=== PATIENT | male | born 1985 | race Caucasian/White ===

== ENCOUNTER 2019-08-26 22:45 | Emergency (ER) | payer SELFPAY ==
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
[2019-08-27 00:34] LABS: ACETAMINOPHEN 0 ug/mL (10-30)
[2019-08-27] MEDS ORDERED: Potassium Chloride 20 MEQ Tab.ER PO ONE (01:29)
== END 2019-08-27 06:15 ==
LOC: JD.ED 22:45
DX: R45.851 Suicidal ideations (principal); F10.129 Alcohol abuse with intoxication, unspecified; Y90.0 Blood alcohol level of less than 20 mg/100 ml; E87.6 Hypokalemia; F50.81 Binge eating disorder; F17.210 Nicotine dependence, cigarettes, uncomplicated
CPT/HCPCS: 36415; 80053; 80306; 80307; 84443; 85007; 85027; 93005; 99285; A9270; 93010

== ENCOUNTER 2019-09-04 19:17 | Emergency (ER) | payer MEDICAID ==
--- NOTE | 2019-09-04 19:42 | EDM.PDOC ---
ED HPI GENERAL MEDICAL PROBLEM - General Chief Complaint: Skin Complaint Stated Complaint: REACTION TO MEDICATION Time Seen by Provider: 09/04/19 19:41 - History of Present Illness INITIAL COMMENTS - FREE TEXT/NARRATIVE: Patient was just discharged from [facility] floor he was discharged on a Prozac 10 mg and Zyprexa. Yesterday the patient developed some burning sensation in his legs feels like some is trying to pull the nerves out of his legs. He is taking his medications as directed. And not using any recreational drugs at this time.. Patient denies any fevers or chills he is not having breathing problems shortness of breath and otherwise feels okay. Bilateral Leg Pain Score (Numeric/FACES): 6 - Related Data Allergies Allergy/AdvReac Type Severity Reaction Status Date / Time No Known Allergies Allergy Verified 09/04/19 19:24 Home Meds: Home Meds FLUoxetine HCl [Prozac] 20 mg PO DAILY 09/04/19 [History] OLANZapine [ZyPREXA] 10 mg PO DAILY 09/04/19 [History] Past Medical History - Past Health History Medical/Surgical History: Denies Medical/Surgical History Psychiatric History: Reports: Bipolar, Suicide Attempt Social & Family History - Caffeine Use Caffeine Use: Reports: None - Living Situation & Occupation Living situation: Reports: Single, with Family (Mother) Occupation: Unemployed ED ROS GENERAL - Review of Systems Review Of Systems: See Below Constitutional: Reports: No Symptoms HEENT: Reports: No Symptoms Respiratory: Reports: No Symptoms Cardiovascular: Reports: No Symptoms GI/Abdominal: Reports: No Symptoms Neurological: Reports: No Symptoms Psychiatric: Reports: No Symptoms. Denies: Agitation, Anxiety, Confusion, Cravings, Depression, Hallucinations, Suicidal Ideation Hematologic/Lymphatic: Reports: No Symptoms Immunologic: Reports: No Symptoms ED EXAM, SKIN/RASH Exam: See Below Exam Limited By: No Limitations General Appearance: Alert, WD/WN Ears: Normal External Exam, Normal Canal, Hearing Grossly Normal, Normal TMs Nose: Normal Inspection, Normal Mucosa, No Blood Throat/Mouth: Normal Inspection, Normal Lips, Normal Teeth, Normal Gums, Normal Oropharynx, Normal Voice, No Airway Compromise Head: Atraumatic, Normocephalic Neck: Normal Inspection, Supple, Non-Tender, Full Range of Motion Respiratory/Chest: No Respiratory Distress, Lungs Clear, Normal Breath Sounds, No Accessory Muscle Use, Chest Non-Tender Cardiovascular: Normal Peripheral Pulses, Regular Rate, Rhythm, No Edema, No Gallop, No JVD, No Murmur, No Rub GI/Abdominal: Normal Bowel Sounds, Soft, Non-Tender Back Exam: Normal Inspection. No: CVA Tenderness (L), CVA Tenderness (R) Extremities: Normal Inspection, Normal Range of Motion, Non-Tender Neurological: Alert, Oriented, Normal Cognition Psychiatric: Normal Affect, Normal Mood, Anxious (Anxious with this condition) Skin: Warm, Dry, Intact Course - Vital Signs Last Recorded V/S: Last Vital Signs Temp 36.9 C 09/04/19 19:26 Pulse 59 L 09/04/19 19:26 Resp 19 09/04/19 19: BP 153/90 H 09/04/19 19: Pulse Ox 92 L 09/04/19 19:26 - Orders/Labs/Meds Labs: Laboratory Tests 09/04/19 09/04/19 09/04/19 Range/Units 21:23 21:23 21:27 WBC (4.23-9.07) K/mm3 RBC (4.63-6.08) M/mm3 Hgb (13.7-17.5) gm/dl Hct (40.1-51.0) % MCV (79.0-92.2) fl MCH (25.7-32.2) pg MCHC (32.2-35.5) g/dl RDW Std Deviation (35.1-43.9) fL Plt Count (163-337) K/mm3 MPV (9.4-12.3) fl Neut % (Auto) (34.0-67.9) % Lymph % (Auto) (21.8-53.1) % [place] % (Auto) (5.3-12.2) % Eos % (Auto) (0.8-7.0) Baso % (Auto) (0.1-1.2) % Neut # (Auto) (1.78-5.38) K/mm3 Lymph # (Auto) (1.32-3.57) K/mm3 [place] # (Auto) (0.30-0.82) K/mm3 Eos # (Auto) (0.04-0.54) K/mm3 Baso # (Auto) (0.01-0.08) K/mm3 Sodium 143 (136-145) mEq/L Potassium 4.2 (3.5-5.1) mEq/L Chloride 103 (98-107) mEq/L Carbon Dioxide 28 (21-32) mEq/L Anion Gap 16.2 H (5-15) BUN 12 (7-18) mg/dL Creatinine 1.0 (0.7-1.3) mg/dL Est Cr Clr Drug Dosing 123.30 mL/min Estimated GFR (MDRD) > 60 (>60) mL/min BUN/Creatinine Ratio 12.0 L (14-18) Glucose 98 (74-106) mg/dL Calcium 9.7 (8.5-10.1) mg/dL Total Bilirubin 0.3 (0.2-1.0) mg/dL AST 58 H (15-37) U/L ALT 159 H (16-63) U/L Alkaline Phosphatase 77 (46-116) U/L Total Protein 7.3 (6.4-8.2) g/dl Albumin 3.7 (3.4-5.0) g/dl Globulin 3.6 gm/dL Albumin/Globulin Ratio 1.0 (1-2) Urine Color Yellow (Yellow) Urine Appearance Clear (Clear) Urine pH 7.0 (5.0-8.0) Ur Specific [place] > or = 1.030 (1.005-1.030) Urine Protein Negative (Negative) Urine Glucose (UA) Negative (Negative) Urine Ketones 1+ H (Negative) Urine Occult Blood Negative (Negative) Urine Nitrite Negative (Negative) Urine Bilirubin Negative (Negative) Urine Urobilinogen 0.2 (0.2-1.0) Ur Leukocyte Esterase Negative (Negative) Urine RBC 0-5 (0-5) /hpf Urine WBC 0-5 (0-5) /hpf Ur Squamous Epith Cells 0-5 (0-5) /hpf Amorphous Sediment Moderate H (NOT SEEN) /hpf Urine Bacteria Few (FEW) /hpf Urine Mucus Few (FEW) /hpf Urine Opiates Screen Negative (VUWQJS=623) Ur Buprenorphine Scrn Negative (CUTOFF=10) Ur Oxycodone Screen Negative (FOW1CW=025) Urine Methadone Screen Negative (DCY4ZU=919) Ur Propoxyphene Screen Negative (QHVBEF=545) Ur Barbiturates Screen Negative (GQVSLO=087) Ur Tricyclics Screen Negative (QDNFGV=694) Ur Phencyclidine Scrn Negative (CUTOFF=25) Ur Amphetamine Screen Negative (VUUCKA=132) U Methamphetamines Scrn Negative (KBKVLT=209) U Benzodiazepines Scrn Negative (PSFLRM=965) U Cocaine Metab Screen Negative (DSOORM=387) U Marijuana (THC) Screen Negative (CUTOFF=50) Ethyl Alcohol 0.00 (0.00) gm% 09/04/19 Range/Units 21:27 WBC 7.71 (4.23-9.07) K/mm3 RBC 4.75 (4.63-6.08) M/mm3 Hgb 14.8 (13.7-17.5) gm/dl Hct 44.3 (40.1-51.0) % MCV 93.3 H (79.0-92.2) fl MCH 31.2 (25.7-32.2) pg MCHC 33.4 (32.2-35.5) g/dl RDW Std Deviation 46.5 H (35.1-43.9) fL Plt Count 235 (163-337) K/mm3 MPV 9.5 (9.4-12.3) fl Neut % (Auto) 55.0 (34.0-67.9) % Lymph % (Auto) 26.7 (21.8-53.1) % [place] % (Auto) 14.5 H (5.3-12.2) % Eos % (Auto) 2.2 (0.8-7.0) Baso % (Auto) 0.4 (0.1-1.2) % Neut # (Auto) 4.24 (1.78-5.38) K/mm3 Lymph # (Auto) 2.06 (1.32-3.57) K/mm3 [place] # (Auto) 1.12 H (0.30-0.82) K/mm3 Eos # (Auto) 0.17 (0.04-0.54) K/mm3 Baso # (Auto) 0.03 (0.01-0.08) K/mm3 Sodium (136-145) mEq/L Potassium (3.5-5.1) mEq/L Chloride (98-107) mEq/L Carbon Dioxide (21-32) mEq/L Anion Gap (5-15) BUN (7-18) mg/dL Creatinine (0.7-1.3) mg/dL Est Cr Clr Drug Dosing mL/min Estimated GFR (MDRD) (>60) mL/min BUN/Creatinine Ratio (14-18) Glucose (74-106) mg/dL Calcium (8.5-10.1) mg/dL Total Bilirubin (0.2-1.0) mg/dL AST (15-37) U/L ALT (16-63) U/L Alkaline Phosphatase (46-116) U/L Total Protein (6.4-8.2) g/dl Albumin (3.4-5.0) g/dl Globulin gm/dL Albumin/Globulin Ratio (1-2) Urine Color (Yellow) Urine Appearance (Clear) Urine pH (5.0-8.0) Ur Specific [place] (1.005-1.030) Urine Protein (Negative) Urine Glucose (UA) (Negative) Urine Ketones (Negative) Urine Occult Blood (Negative) Urine Nitrite (Negative) Urine Bilirubin (Negative) Urine Urobilinogen (0.2-1.0) Ur Leukocyte Esterase (Negative) Urine RBC (0-5) /hpf Urine WBC (0-5) /hpf Ur Squamous Epith Cells (0-5) /hpf Amorphous Sediment (NOT SEEN) /hpf Urine Bacteria (FEW) /hpf Urine Mucus (FEW) /hpf Urine Opiates Screen (ZQZAXH=058) Ur Buprenorphine Scrn (CUTOFF=10) Ur Oxycodone Screen (XFG9VW=204) Urine Methadone Screen (TZI3WF=515) Ur Propoxyphene Screen (XFEVZQ=937) Ur Barbiturates Screen (NECVWK=003) Ur Tricyclics Screen (XTQXTZ=235) Ur Phencyclidine Scrn (CUTOFF=25) Ur Amphetamine Screen (KURMTP=697) U Methamphetamines Scrn (KYMCXQ=524) U Benzodiazepines Scrn (XCSWLT=524) U Cocaine Metab Screen (OXNBCE=906) U Marijuana (THC) Screen (CUTOFF=50) Ethyl Alcohol (0.00) gm% - Re-Assessments/Exams Free Text/Narrative Re-Assessment/Exam: 09/04/19 20:[address] Herndon at [facility] is in [place] her recommendation was to increase the Zyprexa to 20 if he clears a basic medical exam. 09/04/19 22:27 Normal exam labs are not at all concerning alcohol is negative drug screen is negative. Will increase Zyprexa to 20 mg a day and have him follow-up with psychiatrist in the morning. Departure - Departure Time of Disposition: 22:28 Disposition: Home, Self-Care 01 Clinical Impression: Encounter for medication adjustment - Discharge Information Referrals: PCP,None [Ordering Only Provider] - Forms: ED Department Discharge Additional Instructions: Return to the emergency room with any questions problems or worsening symptoms. Increase the Zyprexa to 20 mg at night. Call your psychiatrist in the morning to discuss the medication changes. Inform him that I discussed this with Dr. Herndon this evening. Sepsis Event Note - Evaluation Sepsis Screening Result: No Definite Risk - Focused Exam Vital Signs: Vital Signs Temp Pulse Resp BP Pulse Ox 09/04/19 19:26 36.9 C 59 L 19 153/90 H 92 L Date Exam was Performed: 09/04/19 Time Exam was Performed: 22:27
== END 2019-09-04 22:34 | disposition home or self-care (01) ==
LOC: JD.ED 19:17
DX: Z02.89 Encounter for other administrative examinations (principal); F31.9 Bipolar disorder, unspecified; Z79.899 Other long term (current) drug therapy
CPT/HCPCS: 36415; 80053; 80306; 80307; 81001; 85025; 99282

== ENCOUNTER 2019-09-15 11:07 | Emergency (ER) | payer MEDICAID ==
--- NOTE | 2019-09-15 11:55 | EDM.PDOC ---
ED HPI GENERAL MEDICAL PROBLEM - General Chief Complaint: ENT Problem Stated Complaint: SORE THROAT Time Seen by Provider: 09/15/19 11:14 Source of Information: Reports: Patient History Limitations: Reports: No Limitations - History of Present Illness INITIAL COMMENTS - FREE TEXT/NARRATIVE: Patient is a 34-year-old male who presents with complaints of a sore throat that started upon waking this morning. He states that he felt well before going to bed last night, however when he woke up this morning he had the sore throat. He has had no other symptoms, other than a slight cough which he attributes to scratching his throat. Denies fever, chills, nausea, or vomiting. He has no nasal congestion. Patient does verbalize concern that he may have sleep apnea because he feels like he wakes up during the night not breathing. He also states that he is a very heavy snorer. Throat Pain Score (Numeric/FACES): 10 - Related Data Allergies Allergy/AdvReac Type Severity Reaction Status Date / Time No Known Allergies Allergy Verified 09/15/19 11:13 Home Meds: Home Meds FLUoxetine HCl [Prozac] 20 mg PO DAILY 09/04/19 [History] OLANZapine [ZyPREXA] 20 mg PO DAILY 09/04/19 [History] Past Medical History - Past Health History Medical/Surgical History: Denies Medical/Surgical History Psychiatric History: Reports: Bipolar, Suicide Attempt Social & Family History - Tobacco Use Smoking Status *Q: Current Every Day Smoker Years of Tobacco use: 15 Packs/Tins Daily: 0.3 - Caffeine Use Caffeine Use: Reports: Coffee, Soda - Recreational Drug Use Recreational Drug Use: No - Living Situation & Occupation Living situation: Reports: Single, with Family (Mother) Occupation: Unemployed ED ROS ENT - Review of Systems Review Of Systems: Comprehensive ROS is negative, except as noted in HPI. ED EXAM, ENT - Physical Exam Exam: See Below Exam Limited By: No Limitations General Appearance: Alert, WD/WN, No Apparent Distress Mouth/Throat: Pharyngeal Erythema, Tonsillar Erythema, Tonsillar Swelling. No: Tonsillar Exudates Neck: Normal Inspection, Supple, Non-Tender, Full Range of Motion Respiratory/Chest: No Respiratory Distress, Lungs Clear, Normal Breath Sounds, No Accessory Muscle Use, Chest Non-Tender Cardiovascular: Normal Peripheral Pulses, Regular Rate, Rhythm, No Edema, No Gallop, No JVD, No Murmur, No Rub Neurological: Alert, Oriented, CN II-XII Intact, Normal Cognition, Normal Gait, Normal Reflexes, No Motor/Sensory Deficits Psychiatric: Normal Affect, Normal Mood Skin: Warm, Dry, Intact, Normal Color, No Rash Course - Vital Signs Last Recorded V/S: Last Vital Signs Temp 97.5 F 09/15/19 11:14 Pulse 120 H 09/15/19 11:14 Resp 18 09/15/19 11:14 BP 159/90 H 09/15/19 11:14 Pulse Ox 95 09/15/19 11:14 - Orders/Labs/Meds Orders: Active Orders 24 hr Category Date Time Status CULTURE STREP A CONFIRMATION [] Stat Lab 09/15/19 11:25 Results STREP SCRN A RAPID W CULT CONF [] Stat Lab 09/15/19 11:25 Results - Re-Assessments/Exams Free Text/Narrative Re-Assessment/Exam: On exam, patient does have some mild erythema in his oropharynx, however there is no tonsillar exudates. We will check him for strep. 09/15/19 11:52 Strep screen was negative. Discussed with patient that his sore throat may be related to his heavy snoring or it could be related to a virus. Discussed interventions he can take to remedy the pain. Discussed return precautions. Discharge instructions as documented. Departure - Departure Time of Disposition: 11:53 Disposition: Home, Self-Care 01 Condition: Good Clinical Impression: Sore throat - Discharge Information *PRESCRIPTION DRUG MONITORING PROGRAM REVIEWED*: No *COPY OF PRESCRIPTION DRUG MONITORING REPORT IN PATIENT SOFI: No Instructions: Sore Throat Referrals: PCP,None [Primary Care Provider] - Additional Instructions: You were seen in the emergency department today for a sore throat that started this morning. A strep screen was completed and found to be negative. As we discussed, it is possible that your sore throat may be related to your heavy snoring, or it could be viral in nature. Recommend that you use Tylenol or ibuprofen as needed for pain. You may also use Chloraseptic spray. Cold beverages or popsicles will help soothe the sore throat. If you should experience worsening symptoms such as fever, chills, difficulty breathing or any other symptoms of concern, please do not hesitate to return to the emergency department or follow-up in the clinic. With regards to your concern of possible sleep apnea, I do recommend that you call to schedule an appointment in the clinic with one of the providers to discuss a sleep study. You have been provided with a list of providers. The number to schedule with them is [phone]. Sepsis Event Note - Evaluation Sepsis Screening Result: No Definite Risk - Focused Exam Vital Signs: Vital Signs Temp Pulse Resp BP Pulse Ox 09/15/19 11:14 97.5 F 120 H 18 159/90 H 95 Date Exam was Performed: 09/15/19 Time Exam was Performed: 11:50 - My Orders Last 24 Hours: My Active Orders 09/15/19 11:25 CULTURE STREP A CONFIRMATION [RM] Stat STREP SCRN A RAPID W CULT CONF [RM] Stat - Assessment/Plan Last 24 Hours: My Active Orders 09/15/19 11:25 CULTURE STREP A CONFIRMATION [RM] Stat STREP SCRN A RAPID W CULT CONF [RM] Stat
== END 2019-09-15 12:10 | disposition home or self-care (01) ==
LOC: JD.ED 11:07
DX: J02.9 Acute pharyngitis, unspecified (principal); F17.210 Nicotine dependence, cigarettes, uncomplicated; Z79.899 Other long term (current) drug therapy
CPT/HCPCS: 87081; 87430; 99282; 99283

== ENCOUNTER 2019-09-18 10:58 | Emergency (ER) | payer MEDICAID | END 2019-09-18 11:50 | disposition left against medical advice (07) | LOC: JD.ED 10:58 | DX: Z53.21 Procedure and treatment not carried out due to patient leaving prior to being seen by health care provider (principal) ==

== ENCOUNTER 2019-11-02 19:32 | Emergency (ER) | payer MEDICAID ==
--- NOTE | 2019-11-02 19:49 | EDM.PDOC ---
ED HPI GENERAL MEDICAL PROBLEM - General Chief Complaint: Drug or Alcohol Abuse Stated Complaint: [facility] Time Seen by Provider: 11/02/19 19:36 Source of Information: Reports: Patient, EMS History Limitations: Reports: Intoxication - History of Present Illness INITIAL COMMENTS - FREE TEXT/NARRATIVE: This is a 34-year-old male. He was found in the front yard of a home that was not his. He states he was laying in the yard on his back looking up at the [place] feeling the grass. Apparently the house insurance agency owner called the ambulance thinking he was unconscious and when they arrived he was fully awake and talking. He states he drank too much alcohol today and he was just enjoying the grass. He does have a history of binge pattern drinking and he is inebriated presently. He denies any other symptoms. He denies any upper airway congestion no cough. He denies any musculoskeletal pain. He denies any abdominal pain. He states he wants to be taken home. - Related Data Allergies Allergy/AdvReac Type Severity Reaction Status Date / Time No Known Allergies Allergy Verified 09/15/19 11:13 Home Meds: Home Meds FLUoxetine HCl [Prozac] 20 mg PO DAILY 09/04/19 [History] OLANZapine [ZyPREXA] 20 mg PO DAILY 09/04/19 [History] Past Medical History - Past Health History Medical/Surgical History: Denies Medical/Surgical History HEENT History: Reports: Impaired Vision Psychiatric History: Reports: Bipolar, Depression, Suicide Attempt Social & Family History - Family History Family Medical History: Noncontributory - Tobacco Use Smoking Status *Q: Current Every Day Smoker Years of Tobacco use: 18 Packs/Tins Daily: 1 - Caffeine Use Caffeine Use: Reports: Coffee - Living Situation & Occupation Living situation: Reports: Single, with Family (Mother) Occupation: Unemployed ED ROS GENERAL - Review of Systems Review Of Systems: See Below Reason Not Obtained: The patient states there is nothing wrong with him - Physical Exam Exam: See Below Exam Limited By: Intoxication General Appearance: Alert, WD/WN, No Apparent Distress Eye Exam: Bilateral Eye: Normal Inspection Ears: Normal External Exam Nose: Normal Inspection Throat/Mouth: Normal Inspection, Normal Lips, Normal Voice, No Airway Compromise Head Exam: Normocephalic Neck: Supple, Non-Tender Respiratory/Chest: No Respiratory Distress, Lungs Clear, Normal Breath Sounds Cardiovascular: Regular Rate, Rhythm, No Murmur, Tachycardia GI/Abdominal: Soft, Non-Tender, Other (Bowel sounds are present but they are decreased) Neuro Exam (Abbreviated): Alert, No Motor/Sensory Deficits, Other (Patient is friendly and very talkative, he is not certain what time of day it is or the year, he does understand he rode an ambulance here and he is at the hospital) Back Exam: Full Range of Motion Extremities: Normal Inspection, Normal Range of Motion Psychiatric: Other (The patient appears to be very joyous) Skin Exam: Warm, Dry Course - Vital Signs Last Recorded V/S: Last Vital Signs Temp 97.5 F 11/02/19 19:35 Pulse 124 H 11/02/19 19:35 Resp 16 11/02/19 19:35 BP 114/43 L 11/02/19 19:35 Pulse Ox 95 11/02/19 19:35 - Re-Assessments/Exams Free Text/Narrative Re-Assessment/Exam: 11/02/19 20:04 The patient has been walking around the ER. We have been attempting to keep him in his room. His mother finally showed up and she is giving him what for and is going to take him home. The patient has been walking with no difficulty standing sitting squatting with no difficulty he does not have any imbalance noted. Other than being inebriated he does not appear to have any other acute problems. 11/03/19 02:35 Mother came and scolded the patient and then took him home by the arm. Departure - Departure Time of Disposition: 20:01 Disposition: Home, Self-Care 01 Condition: Fair Clinical Impression: Alcohol ingestion Alcohol intoxication Qualifiers: Complication of substance-induced condition: uncomplicated Qualified Code(s): F10.920 - Alcohol use, unspecified with intoxication, uncomplicated - Discharge Information *PRESCRIPTION DRUG MONITORING PROGRAM REVIEWED*: Not Applicable *COPY OF PRESCRIPTION DRUG MONITORING REPORT IN PATIENT SOFI: Not Applicable Instructions: Alcohol Intoxication, [id number] Referrals: PCP,None [Primary Care Provider] - Forms: ED Department Discharge Additional Instructions: The Mother has come to the ER to take her son home, she agrees to be in charge of him until he is sober, I will discharge him in her care at this time. Sepsis Event Note (ED) - Evaluation Sepsis Screening Result: No Definite Risk - Focused Exam Vital Signs: Vital Signs Temp Pulse Resp BP Pulse Ox 06/26/20 19:35 97.5 F 124 H 16 114/43 L 95
== END 2019-11-02 20:10 | disposition home or self-care (01) ==
LOC: JD.ED 19:32
DX: F10.120 Alcohol abuse with intoxication, uncomplicated (principal); F31.9 Bipolar disorder, unspecified; F17.210 Nicotine dependence, cigarettes, uncomplicated; R00.0 Tachycardia, unspecified; Z79.899 Other long term (current) drug therapy
CPT/HCPCS: 99282; 99283

== ENCOUNTER 2019-11-23 23:30 | Emergency (ER) | payer MEDICAID ==
--- NOTE | 2019-11-24 02:07 | EDM.PDOCBH ---
ED HPI GENERAL MEDICAL PROBLEM - General Chief Complaint: Behavioral/Psych Stated Complaint: HARMFUL THOUGHTS Time Seen by Provider: 11/24/19 01:43 Source of Information: Reports: Patient History Limitations: Reports: No Limitations - History of Present Illness INITIAL COMMENTS - FREE TEXT/NARRATIVE: Mr. Sloan is a very pleasant 35-year-old gentleman with a past medical history significant for binge alcoholism and bipolar affective disorder, untreated for the past 3 to 4 weeks due to the patient taking his medications in excess of that prescribed and running out early, who now presents the ED stating that he has been hearing voices for the past 2 years, telling him lots of things, but for the past 3 weeks, he had been seeing "shadow people", and now he is able to actually see normal-looking people that he cannot distinguish from real people. He also states that he has been feeling suicidal for years, and considered stepping out in front of a car. He states that he attempted to commit suicide about 6 months ago by putting a loaded shotgun under his chin, but he does not know exactly what happened other than he apparently lost his nerve at the last second. He states that he was doing well until today, when he redeveloped strong feelings of being suicidal. He has considered suicide by stepping in front of a car, although he also mentioned to the triage nurse that he would want the car to hit his mother for hitting him. He has not injured himself, although he states that he did drink a fifth of whiskey last night, with his most recent drink just prior to coming to the ED. He denies taking any creation of drugs or medications, other than an antibiotic that he was prescribed by a dentist recently. Here in the ED, the patient is initially found to be tachycardic at 110 bpm, otherwise, he is hemodynamically stable, afebrile, saturating 98% on room air. Other than his psychiatric issues, the patient denies recent fever, chills, sore throat, ear pain, nasal or sinus congestion, cough, dyspnea, chest pain, palpitations, nausea, vomiting, constipation, diarrhea, abdominal pain, urinary symptoms, recent weight gain or weight loss, recent bloody bowel movements or black bowel movements, recent joint aches, headaches, or rashes. The patient does not have a PCP. His Psychiatrist is at [facility]. - Related Data Allergies Allergy/AdvReac Type Severity Reaction Status Date / Time No Known Allergies Allergy Verified 09/15/19 11:13 Home Meds: Home Meds FLUoxetine HCl [Prozac] 20 mg PO DAILY 09/04/19 [History] OLANZapine [ZyPREXA] 20 mg PO DAILY 09/04/19 [History] Past Medical History HEENT History: Reports: Impaired Vision Psychiatric History: Reports: Addiction (alcohol), Bipolar (untreated), Suicide Attempt, Other (See Below) (Insomnia) Social & Family History - Family History Family Medical History: Noncontributory - Tobacco Use Smoking Status *Q: Current Every Day Smoker Years of Tobacco use: 18 Packs/Tins Daily: 0.3 Packs/Tins Daily Comment: Down from 2 ppd - Caffeine Use Caffeine Use: Reports: Coffee - Alcohol Use Alcohol Use History: Yes Alcohol Use Frequency: Binges - Recreational Drug Use Recreational Drug Use: Yes Drug Use in Last 12 Months: Yes Recreational Drug Type: Reports: Amphetamines (Speed) (last took Adderall around 2011), Benzodiazepines (last abused Xanax, Valium 11/22/2019), Cocaine (last snoted around 2015), Ecstasy (last took 2018), Heroin (snorted once in 2015), Marijuana/Hashish (last smoked Jul 2019), Methamphetamine (last snorted, smoked Apr 2019), Other (see below) (Last toof GHB Jun 2019) - Living Situation & Occupation Living situation: Reports: Single, with Family (Mother) Occupation: Unemployed ED ROS GENERAL - Review of Systems Review Of Systems: Comprehensive ROS is negative, except as noted in HPI. ED EXAM, BEHAVIORAL HEALTH - Physical Exam Exam: See Below Exam Limited By: No Limitations General Appearance: Alert, WD/WN, No Apparent Distress Eye Exam: Bilateral Eye: EOMI, Normal Inspection Ears: Normal External Exam, Hearing Grossly Normal Nose: Normal Inspection Throat/Mouth: Normal Inspection, Normal Lips, Normal Voice, No Airway Compromise Head: Atraumatic, Normocephalic Neck: Normal Inspection, Full Range of Motion Respiratory/Chest: No Respiratory Distress, Lungs Clear, Normal Breath Sounds, No Accessory Muscle Use Cardiovascular: Normal Peripheral Pulses, Regular Rate, Rhythm, No Edema, No Gallop, No JVD, No Murmur, No Rub GI/Abdominal: Normal Bowel Sounds, Soft, Non-Tender, No Organomegaly, No Distention, No Abnormal Bruit, No Mass (Male) Exam: Deferred Rectal (Males) Exam: Deferred Back Exam: Normal Inspection, Full Range of Motion, NT Extremities: Normal Inspection, Normal Range of Motion, No Pedal Edema, Normal Capillary Refill Neurological: Alert, No Motor/Sensory Deficits, Oriented x 3 Psychiatric: Normal Affect Skin Exam: Warm, Dry, Intact, Normal color, No rash EKG INTERPRETATION EKG Date: 11/24/19 Time: 02:11 Rhythm: NSR Rate (Beats/Min): 97 Gipsy: Normal P-Wave: Present QRS: Other (Late transition) ST-T: Normal QT: Normal Comparison: No Change (08/26/2019) COURSE, BEHAVIORAL HEALTH COMP - Course Vital Signs: Last Vital Signs Temp 36.9 C 11/24/19 00:02 Pulse 110 H 11/24/19 00:02 Resp 16 11/24/19 00:02 BP 128/81 11/24/19 00:02 Pulse Ox 98 11/24/19 00:02 Orders, Labs, Meds: Laboratory Tests 11/24/19 11/24/19 11/24/19 Range/Units 02:40 02:40 02:40 WBC 6.24 (4.23-9.07) K/mm3 RBC 4.56 L (4.63-6.08) M/mm3 Hgb 14.3 (13.7-17.5) gm/dl Hct 42.4 (40.1-51.0) % MCV 93.0 H (79.0-92.2) fl MCH 31.4 (25.7-32.2) pg MCHC 33.7 (32.2-35.5) g/dl RDW Std Deviation 42.6 (35.1-43.9) fL Plt Count 326 D (163-337) K/mm3 MPV 9.0 L (9.4-12.3) fl Neutrophils % (Manual) 38 L (40-60) % Band Neutrophils % 0 (0-10) % Lymphocytes % (Manual) 50 H (20-40) % Atypical Lymphs % 0 % Monocytes % (Manual) 8 (2-10) % Eosinophils % (Manual) 3 (0.8-7.0) % Basophils % (Manual) 1 (0.2-1.2) Platelet Estimate Adequate Plt Morphology Comment Normal RBC Morph Comment Normal Sodium 145 (136-145) mEq/L Potassium 3.7 (3.5-5.1) mEq/L Chloride 108 H (98-107) mEq/L Carbon Dioxide 31 (21-32) mEq/L Anion Gap 9.7 (5-15) BUN 9 (7-18) mg/dL Creatinine 1.4 H (0.7-1.3) mg/dL Est Cr Clr Drug Dosing TNP Estimated GFR (MDRD) 59 (>60) mL/min BUN/Creatinine Ratio 6.4 L (14-18) Glucose 116 H (74-106) mg/dL Calcium 8.1 L D (8.5-10.1) mg/dL Total Bilirubin 0.2 (0.2-1.0) mg/dL AST 74 H (15-37) U/L ALT 115 H (16-63) U/L Alkaline Phosphatase 89 (46-116) U/L Total Protein 6.7 (6.4-8.2) g/dl Albumin 3.4 (3.4-5.0) g/dl Globulin 3.3 gm/dL Albumin/Globulin Ratio 1.0 (1-2) TSH 3rd Generation 0.731 (0.358-3.74) uIU/mL Salicylates 3.3 (2.8-20) mg/dL Urine Opiates Screen (JXJQIE=854) Ur Buprenorphine Scrn (CUTOFF=10) Ur Oxycodone Screen (NFA2JM=242) Urine Methadone Screen (KNB3WU=371) Ur Propoxyphene Screen (NBIEXM=229) Acetaminophen 0 L (10-30) ug/mL Ur Barbiturates Screen (ZKIUHD=340) Ur Tricyclics Screen (MGXOFV=707) Ur Phencyclidine Scrn (CUTOFF=25) Ur Amphetamine Screen (VQOSYA=258) U Methamphetamines Scrn (XGIDEG=267) U Benzodiazepines Scrn (CUEUMJ=418) U Cocaine Metab Screen (CPFNPC=593) U Marijuana (THC) Screen (CUTOFF=50) Ethyl Alcohol 0.14 (0.00) gm% COVID-19 (BURAK) (NEGATIVE) 11/24/19 11/24/19 Range/Units 09:29 09:47 WBC (4.23-9.07) K/mm3 RBC (4.63-6.08) M/mm3 Hgb (13.7-17.5) gm/dl Hct (40.1-51.0) % MCV (79.0-92.2) fl MCH (25.7-32.2) pg MCHC (32.2-35.5) g/dl RDW Std Deviation (35.1-43.9) fL Plt Count (163-337) K/mm3 MPV (9.4-12.3) fl Neutrophils % (Manual) (40-60) % Band Neutrophils % (0-10) % Lymphocytes % (Manual) (20-40) % Atypical Lymphs % % Monocytes % (Manual) (2-10) % Eosinophils % (Manual) (0.8-7.0) % Basophils % (Manual) (0.2-1.2) Platelet Estimate Plt Morphology Comment RBC Morph Comment Sodium (136-145) mEq/L Potassium (3.5-5.1) mEq/L Chloride (98-107) mEq/L Carbon Dioxide (21-32) mEq/L Anion Gap (5-15) BUN (7-18) mg/dL Creatinine (0.7-1.3) mg/dL Est Cr Clr Drug Dosing Estimated GFR (MDRD) (>60) mL/min BUN/Creatinine Ratio (14-18) Glucose (74-106) mg/dL Calcium (8.5-10.1) mg/dL Total Bilirubin (0.2-1.0) mg/dL AST (15-37) U/L ALT (16-63) U/L Alkaline Phosphatase (46-116) U/L Total Protein (6.4-8.2) g/dl Albumin (3.4-5.0) g/dl Globulin gm/dL Albumin/Globulin Ratio (1-2) TSH 3rd Generation (0.358-3.74) uIU/mL Salicylates (2.8-20) mg/dL Urine Opiates Screen Negative (OGHSQM=368) Ur Buprenorphine Scrn Negative (CUTOFF=10) Ur Oxycodone Screen Negative (OJQ2XK=490) Urine Methadone Screen Negative (YBI1AW=308) Ur Propoxyphene Screen Negative (WHAFKM=817) Acetaminophen (10-30) ug/mL Ur Barbiturates Screen Presumptive positive H (OLGPUX=268) Ur Tricyclics Screen Negative (GBSHXK=883) Ur Phencyclidine Scrn Negative (CUTOFF=25) Ur Amphetamine Screen Negative (MBPEKJ=232) U Methamphetamines Scrn Negative (WNKFXC=653) U Benzodiazepines Scrn Presumptive positive H (GKPWCU=527) U Cocaine Metab Screen Presumptive positive H (ICJQVG=776) U Marijuana (THC) Screen Negative (CUTOFF=50) Ethyl Alcohol (0.00) gm% COVID-19 (BURAK) Negative (NEGATIVE) Medical Clearance: 11/24/19 02:04 As above, the patient told the triage nurse that he has been feeling suicidal, whereas he tells me that he has been experiencing auditory hallucinations that have now become visual hallucinations. He also reports feeling suicidal today. He reports having drunk a fifth of whiskey yesterday, although denies taking any drugs or medications, other than an antibiotic that he is on. He states that he has been out of his psychiatric medications for the past 3 to 4 weeks, after having taken them in excess of his prescription due to worsening psychiatric symptoms. The patient likely requires psychiatric hospitalization. I have ordered a standard psychiatric medical clearance panel. 11/24/19 04:18 The patient's CBC is unremarkable. His CMP is remarkable for a Cr slightly elevated at 1.4, with a BUN normal at 9. His blood glucose is slightly elevated at 116. His AST/ALT are slightly elevated at 74/115, respectively, with the remainder of his CMP being unrema rkable. His TSH is within normal limits at 0.731. His acetaminophen level is 0. His salicylate level is within normal limits at 3.3. His EtOH level is elevated at 0.14. The patient has not yet submitted a urine sample for the urine drug screen. 11/24/19 08:50 The patient has still not yet submitted a urine sample for the urine drug screen. Jonny RN tells me that he is drinking water, and that she has asked him several times, but he keeps telling her that he does not need to go. 11/24/19 09:34 The patient has provided a urine sample. In addition, I have ordered a for the SARS-CoV-2 virus. Case discussed with Dr. Herndon, Psychiatrist at [facility], at 09:28. She has tentatively accepted the patient for admission to their psychiatric unit, however not immediately. They have a patient that they intend to discharge in a couple of hours, and if that goes successfully, then Mr. Sloan can have that patient's position. The patient will need to be transported by the [facility]'s department, and Dr. Herndon was not comfortable with the patient's comment about wanting a car to hit his mother before him. In the meantime, they would like us to fax a face sheet. 11/24/19 10:03 The patient's urine drug screen has returned positive for barbiturates, benzodiazepines, and cocaine. I talked to him about this. He acknowledges that he took some Xanax about 2 days ago, but does not know where the barbiturates would have come from, and he adamantly denies that he has done any cocaine in years. Departure - Departure Time of Disposition: 09:40 Disposition: DC/Tfer to Psych Hosp/Unit 65 Condition: Good Clinical Impression: Hallucinations, Alcohol dependence, binge pattern, Depression, Suicidal ideation, Benzodiazepine abuse Alcohol intoxication Qualifiers: Complication of substance-induced condition: uncomplicated Qualified Code(s): F10.920 - Alcohol use, unspecified with intoxication, uncomplicated - Discharge Information *PRESCRIPTION DRUG MONITORING PROGRAM REVIEWED*: Not Applicable *COPY OF PRESCRIPTION DRUG MONITORING REPORT IN PATIENT SOFI: Not Applicable Forms: ED Department Discharge Sepsis Event Note (ED) - Evaluation Sepsis Screening Result: No Definite Risk
[2019-11-24 03:20] LABS: ACETAMINOPHEN 0 ug/mL (10-30)
== END 2019-11-24 15:50 ==
LOC: JD.ED 23:30
DX: F32.9 Major depressive disorder, single episode, unspecified (principal); Y90.6 Blood alcohol level of 120-199 mg/100 ml; F10.229 Alcohol dependence with intoxication, unspecified; F19.10 Other psychoactive substance abuse, uncomplicated; F17.210 Nicotine dependence, cigarettes, uncomplicated
CPT/HCPCS: 36415; 80053; 80306; 80307; 84443; 85007; 85027; 93005; 99285-25; U0002

== ENCOUNTER 2019-12-15 08:15 | Emergency (ER) | payer OTHER, MEDICAID ==
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
[2019-12-15] MEDS ORDERED: Lactated Ringers 1,000 ML IV ONE (08:44)
[2019-12-15] MEDS ORDERED: Diphtheria,Pertussis(Acell),Tetanus Vaccine 0.5 ML Syringe IM ONE (08:46)
[2019-12-15] MEDS ORDERED: Iopamidol 612 MG/ML 100 ML Bottle IVPUSH ONE (09:18)
[2019-12-15] MEDS ORDERED: Iopamidol 612 MG/ML 50 ML SDV IVPUSH ONE (09:18)
[2019-12-15] MEDS ORDERED: Sodium Chloride 0.9% 10 ML Syringe FLUSH ONE (09:18)
--- NOTE | 2019-12-15 09:58 | CT ---
CT cervical spine Technique: Multiple axial sections were obtained from above C1 inferiorly to the bottom of T2. Reconstructed sagittal and coronal images were reviewed. Comparison: No prior cervical spine imaging. Findings: Minimal disc space narrowing at C5-6 with anterior osteophytes. Posterior osteophytes are seen at C6-7. Vertebral body heights are maintained. No bony central or bony neural foraminal stenosis is seen. No fracture is appreciated. Impression: 1. Minimal degenerative change. 2. No acute fracture or abnormal subluxation is appreciated on CT study of the cervical spine. Diagnostic code #2 This report was dictated in MDT
--- NOTE | 2019-12-15 10:03 | CT ---
CT chest Technique: Multiple axial sections were obtained from above the lung apices inferiorly through the lung bases. Intravenous contrast was utilized. Reconstructed coronal and sagittal images were obtained. Findings: Aorta shows no aneurysm. Mediastinum and hilar regions show no adenopathy or mass. No pericardial thickening is seen. No axillary adenopathy is identified. Lungs are clear with no acute parenchymal change. No pleural effusions are seen. No pneumothorax is appreciated. Bone window settings were reviewed which shows no discrete acute osseous finding. Impression: 1. Nothing acute is appreciated on CT study of the chest. Diagnostic code #1 This report was dictated in MDT CT abdomen and pelvis Technique: Multiple axial sections were obtained from above the dome of the diaphragm inferiorly through the pubic symphysis. Intravenous contrast was utilized. No oral contrast has been given. Delayed images were obtained to the bladder. Reconstructed coronal and sagittal images were obtained. Findings: Liver contains no focal parenchymal abnormality. Spleen appears within normal limits. Adrenal glands show no nodule. Pancreas shows no discrete abnormality. Gallbladder is collapsed without calcified gallstones. Kidneys show symmetric contrast enhancement with no hydronephrosis or mass. Aorta shows no aneurysm. No retroperitoneal adenopathy or mesenteric abnormalities are seen. Appendix is seen which is normal in size. No pelvic mass or adenopathy is noted. No free fluid or inflammatory change is seen. Slight increased stool is noted within the pelvis. Delayed images shows contrast within the distal ureters and within the bladder. Bone window settings were reviewed. No acute osseous finding is appreciated. Impression: 1. Slight increased stool within the colon. 2. Nothing acute is appreciated on CT study of the abdomen and pelvis. Diagnostic code #2 This report was dictated in MDT
--- NOTE | 2019-12-15 10:04 | CT ---
Head CT Technique: Multiple axial sections through the brain were obtained. Intravenous contrast was not utilized. Comparison: No previous intracranial imaging is available. Findings: Ventricles along with basal cisterns and sulci over the convexities are within normal limits for the patient's age. No abnormal parenchymal densities are seen. No evidence of intracranial hemorrhage. No midline shift or mass-effect is seen. Visualized paranasal sinuses and visualized mastoid sinuses showed nothing acute. No acute calvarial finding is appreciated. Impression: 1. Nothing acute is appreciated on noncontrast head CT exam. Diagnostic code #1 This report was dictated in MDT
== END 2019-12-15 10:55 | disposition home or self-care (01) ==
LOC: JD.ED 08:15
DX: S09.90XA Unspecified injury of head, initial encounter (principal); F31.9 Bipolar disorder, unspecified; Y92.410 Unspecified street and highway as the place of occurrence of the external cause; Z79.899 Other long term (current) drug therapy; Z23 Encounter for immunization; V47.5XXA Car driver injured in collision with fixed or stationary object in traffic accident, initial encounter
CPT/HCPCS: 36415; 70450; 71260; 72125; 74177; 80053; 80306; 80307; 81003; 82150; 83690; 85025; 90471; 90715; 96360; 99285; J7120; Q9967; 99283